=== PATIENT | female | born 1935 | race Caucasian/White ===

== ENCOUNTER 2017-09-06 23:47 | Observation (INO) | payer MEDICARE, OTHER ==
--- NOTE | 2017-09-07 00:03 | ERNOTE ---
Medical Problem HPI - General Chief Complaint: General Assessment Time Seen by Provider: 09/06/17 23:56 Source: patient Exam Limitations: no limitations - Immun/Allergies/Home Medications Immunizations: IMMUNIZATION HX Immunizations Up to Date Yes History of Influenza Vaccine Yes Hx Pneumococcal Vaccination No Allergies/Adverse Reactions: Allergies codeine Adverse Reaction (Mild, Verified 08/22/17 15:24) N/V Sulfa (Sulfonamide Antibiotics) Adverse Reaction (Mild, Verified 08/22/17 15:24) N/V Home Medications: HOME MEDICATIONS Multivitamins [Multivitamin Vivian] 1 cap PO DAILY 08/22/17 [Last Taken Unknown] Sertraline HCl [Zoloft] 50 mg PO DAILY 08/22/17 [Last Taken Unknown] Ciprofloxacin HCl [Cipro] 500 mg PO BID #7 tab 09/07/17 [Last Taken Unknown] oxyCODONE HCL/ACETAMINOPHEN [Percocet 5-325 mg Tablet] 1 each PO QID PRN [Last Taken Unknown] - History of Present History Narrative: Pt states she has not felt well for a few days, with fatigue, ear pressure, shortness of breath and feeling cold Timing: getting worse Severity: moderate Modifying Factors - (Improves): Present: rest Modifying Factors - (Worsens): Present: movement Review of Systems - Review of Systems Constitutional: Present: fever, chills EYE: Present: no symptoms reported ENT: Present: ear pain Respiratory: Present: shortness of breath, cough Cardiology: Absent: chest pain Gastrointestinal/Abdominal: Absent: nausea, vomiting, abdominal pain Genitourinary: Absent: frequency, pain Musculoskeletal: Present: muscle stiffness Skin: Absent: rash, dryness Neurological: Present: no symptoms reported Endocrine: Present: excessive sweating Hematologic/Lymphatic: Present: no symptoms reported Psych: Present: no symptoms reported - Patient's Past Medical History Patient History - Medical: Depression Patient History - Cardiac/Respiratory: COPD Patient History - Cancer: No Hx of Cancer Patient History - Surgical Procedures: No surgical history - Family History Father Family History - Medical: Family History - Cancer: Other - Spinal Cancer Mother Family History - Medical: Family History - Cardiac/Respiratory: Myocardial Infarction - at age 49 - Social History Living Situations: home Psych History: Hx of Depression Smoking Status: Current every day smoker Patient requests Smoking Cessation Consult: No Initiate information on Smoking Cessation: No Alcohol Use: none Drug Use: none - Immunizations Immunizations Up to Date: Yes Hx Pneumococcal Vaccination: No History of Influenza Vaccine: Yes Physical Exam - Physical Exam General Appearance: Present: wd/wn, alert, mild distress Head Exam: Present: normal inspection, no evidence of injury Ears, Nose, Throat: Present: normal ENT inspection Neck: Present: normal inspection, nontender Respiratory: Present: no respiratory distress, no accessory muscle use, decreased breath sounds Cardiovascular/Chest: Present: no murmur, tachycardia Gastrointestinal/Abdominal: Present: normal bowel sounds, nontender, nondistended, soft Extremity Exam: Present: normal inspection, normal range of motion, no edema Neurological Exam: Present: alert, oriented, no motor/sensory deficits Skin Exam: Present: normal color, warm/dry Lymphatic Exam: Present: no adenopathy ED Progress - Results and Orders Patient's Lab Results:: I have reviewed the patient's lab results. Results and Orders: Laboratory Tests 09/07/17 09/07/17 09/07/17 00:00 00:10 00:10 WBC 6.0 Hgb 14.3 Hct 42.3 Plt Count 132 L Sodium 135 Potassium 4.0 Chloride 97 Carbon Dioxide 31.2 Anion Gap 10.8 BUN 14 Creatinine 0.64 Random Glucose 116 H Calcium 8.2 Total Bilirubin 0.4 AST 16 ALT 17 L Alkaline Phosphatase 72 Total Protein 6.9 Albumin 3.4 Urine Color Urine Appearance Urine pH Ur Specific [place] Urine Protein Urine Glucose (UA) Urine Ketones Urine Blood Urine Nitrate Urine Bilirubin Urine Urobilinogen Ur Leukocyte Esterase Urine RBC Urine WBC Ur Epithelial Cells Urine Bacteria Urine Culture Comments Influenza Type A Ag Negative Influenza Type B Ag Negative 09/07/17 01:10 WBC Hgb Hct Plt Count Sodium Potassium Chloride Carbon Dioxide Anion Gap BUN Creatinine Random Glucose Calcium Total Bilirubin AST ALT Alkaline Phosphatase Total Protein Albumin Urine Color Pale yellow Urine Appearance Cloudy Urine pH 7.5 Ur Specific [place] 1.010 Urine Protein Negative Urine Glucose (UA) Negative Urine Ketones 5 Urine Blood 10 H Urine Nitrate Negative Urine Bilirubin Negative Urine Urobilinogen Normal Ur Leukocyte Esterase 25 H Urine RBC 5-10 H Urine WBC 10-25 H Ur Epithelial Cells 5-10 H Urine Bacteria 1+ H Urine Culture Comments Culture to follow Influenza Type A Ag Influenza Type B Ag - Vital Signs Patient's Vital Signs:: I have reviewed the patient's vital signs. Vital Signs: Vital Signs 09/06/17 23:51 Temperature 36.9 C Pulse Rate 100 Respiratory 20 Rate Blood Pressure 180/103 O2 Sat by Pulse 91 Oximetry - EKG EKG: NSR - with 1st degree block, other - left post facicular block EKG read: Interp. by me - X-Ray X-Ray #1 X-Ray: chest Interpretation: Interp. by me X-ray Comments: no infiltrate or effusion - Progress/Reassessment Chief Complaint: General Assessment Progress Note-Subjective: Attempted to wean patient off of O2 in preparation to discharge patient. We were unable to keep SaO2 above 88% without supplimental O2 09/07/17 04:36 spoke with Oneida RIGGS hospitalist, she will come and see the patient before deciding on admission 09/07/17 05:12 Oneida agrees to admit the patient. She asked if I would give the patient a bolus of cardizem for her elevated heart rate. I told her that I did not feel the patient needed cardizem as the patient was not in an arrhythmia but had physiologic sinus tachycardia at 110-120 and I was not going to block the patients physiologic response. 09/07/17 06:49 Departure Clinical Impression: COPD exacerbation UTI (urinary tract infection) Qualifiers: Urinary tract infection type: acute cystitis Hematuria presence: with hematuria Qualified Code(s): N30.01 - Acute cystitis with hematuria - Departure Disposition: [facility] Condition: Good
[2017-09-07 00:16] LABS: Hematocrit 42.3 % (37.0-47.0); Hemoglobin 14.3 gm/dL (12.5-16.0); Mean Cell Volume 88.1 fl (78-100); Mean Corpuscular Hemoglobin 29.8 pg (27-31); Mean Corpuscular Hgb Conc 33.8 g/dl (32-36); Mean Platelet Volume 10.4 fl (6.0-9.5); Neutrophil # 4.3 K/mm3 (1.3-6.0); Neutrophil % 70.8 % (42-75.0); Platelet Count 132 K/mm3 (150-450); Red Cell Distribution Width 13.2 % (11.5-14.0)
[2017-09-07 00:31] LABS: Albumin * 3.4 gm/dl (3.4-5.0); Anion Gap 10.8 mmol/L (6.8-13.8); BUN/Creatinine Ratio 21.9 (9.0-21.6); Bilirubin, Total 0.4 mg/dL (0.0-1.1); Ca. Corrected For Albumin 8.4 mg/dL (8.4-10.2); Calcium * 8.2 mg/dL (7.9-10.9); Carbon Dioxide 31.2 mmol/L (24-32.6); Total Protein 6.9 gm/dL (6.2-8.2)
[2017-09-07 01:29] LABS: Urine Bilirubin Negative (NEGATIVE); Urine Ketone 5 mg/dL (NEGATIVE); Urine Nitrite Negative (NEGATIVE); Urine Protein Negative (NEGATIVE); Urine Urobilinogen Normal (NORMAL); Urine pH 7.5 pH (5.0-7.0)
[2017-09-07 01:41] LABS: Urine Appearance Cloudy; Urine Blood 10 /ul (NEGATIVE); Urine Color Pale Yellow
[2017-09-07 01:42] LABS: Urine Bacteria 1+
[2017-09-07] MEDS ORDERED: CIPROFLOXACIN HCL 250 MG TABLET PO ONE (02:27)
[2017-09-07] MEDS ORDERED: ONDANSETRON 4 MG TAB.RAPDIS PO ONE (02:29)
[2017-09-07] MEDS ORDERED: ONDANSETRON 4 MG TAB.RAPDIS ONE (02:29)
[2017-09-07] MEDS ORDERED: CIPROFLOXACIN HCL 250 MG TABLET ONE (02:29)
[2017-09-07] MEDS ORDERED: ALBUTEROL SULFATE/IPRATROPIUM 3 ML NEBU IH ONE ×2 (02:41→02:42)
[2017-09-07] MEDS ORDERED: METHYLPREDNISOLONE SOD SUCC/PF 125 MG/2 ML VIAL ONE (03:01)
[2017-09-07] MEDS ORDERED: METHYLPREDNISOLONE SOD SUCC/PF 125 MG/2 ML VIAL IV ONE (03:01)
--- NOTE | 2017-09-07 05:41 | HP ---
Chief Complaint - Chief Complaint Date of Service: 09/07/17 Time of Service: 05:23 Chief Complaint: "Fatigue, SOB, weakness, loss of appetite". Source of HPI- Pt ; reliable, ERP provider. History of Present Illness: Mrs. Arroyo is a 81-yr-old WF pt of Dr. Ellen Jordan with a PMH of: AAA, Anxiety, COPD, Depression, HTN, Hypothyroidism & PAD. Pt states that for the last 1 week, she has not been feeling well. She reports symptoms ranging from: feeling fatigued, loss of appetite, SOB & Increasing coughing. She finally chose to come to the ED as she was not getting any better. She denies fevers, but reports having chills. Her cough is mostly non-productive. At the ED, she was found to have POX level of 84% RA and required oxygen supplementation up to 4 L to maintain > 90%. She was tachypneic. ABG's showed acute compensated Respiratory Alcalosis. Her laboratory studies were mostly unremarkable. She still required oxygen supplementation despite treatment with IV Corticosteoids and Nebulizer treatments at the ED. The CXR official report is pending. On physical exam, she gets dyspneic with minimal movement & HR is irregular at 110s -low 130s. She will be admitted under observation status for COPD exacerbation and telemetry monitoring. - Patient's Past Medical History Patient History - Medical: Anxiety, Depression Patient History - Cardiac/Respiratory: COPD, Hypertension, Other - AAA Patient History - Cancer: No Hx of Cancer Patient History - Surgical Procedures: No surgical history - Family History Father Family History - Medical: Family History - Cancer: Other - Spinal Cancer Mother Family History - Medical: Family History - Cardiac/Respiratory: Myocardial Infarction - at age 49 - Social History Living Situations: home Psych History: Hx of Depression Smoking Status: Current every day smoker Patient requests Smoking Cessation Consult: No Initiate information on Smoking Cessation: No Alcohol Use: none Drug Use: none - Immunizations Immunizations Up to Date: Yes Hx Pneumococcal Vaccination: No History of Influenza Vaccine: Yes Review Of Systems (GEN) - Review of Systems Generalized/Overall Review: Present: Weakness, Chills, Malaise, Fatigue, Weight loss. Absent: Fever, Diaphoresis EENTM: Absent: Eye Pain, Blurred Vision, Tearing Respiratory: Present: Cough, Shortness of Breath. Absent: Orthopnea, Stridor Cardiac: Present: Palpitations. Absent: Chest Pain, Edema, Syncope Abdominal: Absent: Nausea, Vomiting, Hematemesis Genitourinary: Absent: Burning, Itching, Frequency Musculoskeletal: Absent: Joint Pain, Back Pain, Joint Swelling Neurological: Present: Weakness. Absent: Headache, Anxiety, Depressed, Numbness Skin: Absent: Dryness, Lesions Endocrine: Present: Intolerance to Cold. Absent: Flushing, Increased Thirst Misc: All systems neg except as marked Allergies/Adverse Reactions: Allergies Allergy/AdvReac Type Severity Reaction Status Date / Time codeine AdvReac Mild N/V Verified 08/22/17 15:24 Sulfa (Sulfonamide AdvReac Mild N/V Verified 08/22/17 15:24 Antibiotics) Home Medications: HOME MEDICATIONS Multivitamins [Multivitamin Vivian] 1 cap PO DAILY 08/22/17 [Last Taken Unknown] Sertraline HCl [Zoloft] 50 mg PO DAILY 08/22/17 [Last Taken Unknown] Ciprofloxacin HCl [Cipro] 500 mg PO BID #7 tab 09/07/17 [Last Taken Unknown] oxyCODONE HCL/ACETAMINOPHEN [Percocet 5-325 mg Tablet] 1 each PO QID PRN [Last Taken Unknown] Exam - Exam Vital Signs: Vital Signs - Last Taken Temp 37.4 C 09/07/17 02:51 Pulse 114 H 09/07/17 05:12 Resp 26 H 09/07/17 05:12 BP 130/78 09/07/17 05:12 Pulse Ox 93 09/07/17 05:12 Constitutional: Present: Alert, Oriented x3, Cooperative, Mild distress, Elderly , Thin and frail ENT Exam: Present: normal ENT inspection, dry mucous membranes. Absent: nasal congestion, nasal drainage Neck: Present: non-tender, full range of motion, supple Back Exam: Present: normal inspection, no CVA tenderness Breasts: Present: Exam deferred Respiratory: Present: lungs clear Cardiovascular/Chest: Present: no edema, irregularly irregular Abdomen: Present: Normal bowel sounds, soft, tender - epigastic area Extremity: Present: normal range of motion, non-tender Skin Exam: Present: warm/dry, no cyanosis Lymphatic: Present: no adenopathy Neurologic: Present: no motor/sensory deficits, alert, oriented x 3 Appearance: Present: appropriate appearance, appropriate insight Eye contact: Present: cooperative, good eye contact, normal speech Thoughts: Present: no apparent hallucination Diagnostic Studies: Laboratory Results WBC 6.0 K/mm3 (4.0-10.5) 09/07/17 00:10 RBC 4.80 M/mm3 (4.2-5.4) 09/07/17 00:10 Hgb 14.3 gm/dL (12.5-16.0) 09/07/17 00:10 Hct 42.3 % (37.0-47.0) 09/07/17 00:10 MCV 88.1 fl (78-100) 09/07/17 00:10 MCH 29.8 pg (27-31) 09/07/17 00:10 MCHC 33.8 g/dl (32-36) 09/07/17 00:10 RDW 13.2 % (11.5-14.0) 09/07/17 00:10 Plt Count 132 K/mm3 (150-450) L 09/07/17 00:10 MPV 10.4 fl (6.0-9.5) H 09/07/17 00:10 Immature Gran % (Auto) 0.20 % (0.001-0.429) 09/07/17 00:10 Immature Gran # (Auto) 0.01 K/mm3 (0.000-0.0310) 09/07/17 00:10 Neutrophils % 70.8 % (42-75.0) 09/07/17 00:10 Lymphocytes % 18.2 % (20-51) L 09/07/17 00:10 Monocytes % 8.3 % (0.0-9) 09/07/17 00:10 Eosinophils % 2.2 % (0.0-3.0) 09/07/17 00:10 Basophils % 0.3 % (0.0-1.0) 09/07/17 00:10 Nucleated RBC % 0.0 k/mm3 (0-1) 09/07/17 00:10 Neutrophils # 4.3 K/mm3 (1.3-6.0) 09/07/17 00:10 Lymphocytes # 1.1 k/mm3 (1.5-3.5) L 09/07/17 00:10 Monocytes # 0.5 k/mm3 (0.0-1.0) 09/07/17 00:10 Eosinophils # 0.1 k/mm3 (0.0-0.7) 09/07/17 00:10 Absolute Basophils 0.0 k/mm3 (0.0-0.1) 09/07/17 00:10 pCO2 24.8 mmHg (32.0-45.0) L 09/07/17 04:10 pO2 53.0 mmHg (83.0-108.0) L 09/07/17 04:10 HCO3 18.9 mmol/L (21.0-28.0) L 09/07/17 04:10 Total CO2 19.6 mmol/L (19.0-24.0) 09/07/17 04:10 Base Excess -2.5 mmol/L (-2.0-3.0) L 09/07/17 04:10 ABG pH 7.50 (7.35-7.45) H 09/07/17 04:10 ABG O2 Sat (Measured) 90.9 % (94.0-98.0) L 09/07/17 04:10 Sodium 135 mmol/L (132-142) 09/07/17 00:10 Plasma Sodium 135 mmol/L (130-142) 09/07/17 00:10 Potassium 4.0 mmol/L (3.4-4.6) 09/07/17 00:10 Chloride 97 mmol/L (97-106) 09/07/17 00:10 Carbon Dioxide 31.2 mmol/L (24-32.6) 09/07/17 00:10 Anion Gap 10.8 mmol/L (6.8-13.8) 09/07/17 00:10 BUN 14 mg/dL (3-23) 09/07/17 00:10 Creatinine 0.64 mg/dL (0.4-1.4) 09/07/17 00:10 Est GFR (Non-Af Amer) 94 mL/min (60-130) D 09/07/17 00:10 BUN/Creatinine Ratio 21.9 (9.0-21.6) H 09/07/17 00:10 Random Glucose 116 mg/dL (70-110) H 09/07/17 00:10 Calcium 8.2 mg/dL (7.9-10.9) 09/07/17 00:10 Calcium Adj for Albumin 8.4 mg/dL (8.4-10.2) 09/07/17 00:10 Total Bilirubin 0.4 mg/dL (0.0-1.1) 09/07/17 00:10 AST 16 U/L (0-48) 09/07/17 00:10 ALT 17 U/L (19-67) L 09/07/17 00:10 Alkaline Phosphatase 72 U/L (50-170) 09/07/17 00:10 Total Protein 6.9 gm/dL (6.2-8.2) 09/07/17 00:10 Albumin 3.4 gm/dl (3.4-5.0) 09/07/17 00:10 Urine Color Pale yellow 09/07/17 01:10 Urine Appearance Cloudy 09/07/17 01:10 Urine pH 7.5 pH (5.0-7.0) 09/07/17 01:10 Ur Specific [place] 1.010 SP.GR. (1.005-1.010) 09/07/17 01:10 Urine Protein Negative mg/dL (NEGATIVE) 09/07/17 01:10 Urine Glucose (UA) Negative mg/dL (NEGATIVE) 09/07/17 01:10 Urine Ketones 5 mg/dL (NEGATIVE) 09/07/17 01:10 Urine Blood 10 /ul (NEGATIVE) H 09/07/17 01:10 Urine Nitrate Negative (NEGATIVE) 09/07/17 01:10 Urine Bilirubin Negative mg/dl (NEGATIVE) 09/07/17 01:10 Urine Urobilinogen Normal EU/dl (NORMAL) 09/07/17 01:10 Ur Leukocyte Esterase 25 /ul (NEGATIVE) H 09/07/17 01:10 Urine RBC 5-10 /hpf (0-5) H 09/07/17 01:10 Urine WBC 10-25 /hpf (0-5) H 09/07/17 01:10 Ur Epithelial Cells 5-10 /hpf (0-5) H 09/07/17 01:10 Urine Bacteria 1+ (NONE) H 09/07/17 01:10 Urine Culture Comments Culture to follow 09/07/17 01:10 Influenza Type A Ag Negative (NEGATIVE) 09/07/17 00:00 Influenza Type B Ag Negative (NEGATIVE) 09/07/17 00:00 Assessment/Plan - Assessment/Plan (1) COPD exacerbation Assessment: Pt is a 81-yr old WF who presented with ongoing SOB, increasing cough & fatigue. The CXR did not show any acute findings and the hematology labs were unremarkable. She required Oxygen supplementation to keep pox > 90%. Given her age, chronic lung disease, comorbidites,current smoker, it is best to cover her with Antibiotics to prevent progression to Pneumonia. Will provide IV steroids and Nebulizer treatments as well. Push cornet q 2 hrs, wean off oxygen as able. May end up needing home O2 qualification if unable to be weaned off. Monitor labs, & V.S & push activity. Problem: Acute (2) HTN (hypertension) Assessment: BPs appears well controlled. Not on any hypertensives. Problem: Chronic Qualifiers: Hypertension type: essential hypertension Qualified Code(s): I10 - Essential (primary) hypertension (3) Anxiety Problem: Chronic (4) AAA (abdominal aortic aneurysm) Assessment: Last US imaging in 01/2013 showe: Proximal abdominal aorta - 2.3 x2.8 cm, Mid Abdominal Aorta 2.1X 2.4cm, Distal 2.5 x 3.1cm Problem: Chronic
[2017-09-07] MEDS ORDERED: guaiFENesin 100 MG/5 ML BTL PO PRN (05:57)
[2017-09-07] MEDS: LEVALBUTEROL HCL 1.25 MG/3 ML AMPUL IH SCH ×4 (07:05→18:01)
[2017-09-07] MEDS ORDERED: AZITHROMYCIN 250 MG TABLET PO ONE (07:22)
[2017-09-07] MEDS: cefTRIAXone SODIUM 1,000 MG in DEXTROSE 5 % IN WATER 50 ML IV SCH ×2 (07:39)
[2017-09-07] MEDS: NICOTINE 14 MG PATC TD SCH (07:43)
--- NOTE | 2017-09-07 08:30 | PN ---
Progess Note - Interim Narrative: 09/07/17 08:28 I saw and examined this patient on 09/07/2017. I agree with the narrative and plan of KEELY Robles. We will continue with her IV antibiotics, IV solumedrol and breathing treatment and O2 supplementation for her Acute COPD exacerbation.
[2017-09-07] MEDS: METHYLPREDNISOLONE SOD SUCC 80 MG in WATER FOR INJ.,BACTERIOSTATIC 0 ML IV SCH ×3 (08:49→20:05)
[2017-09-07] MEDS ORDERED: oxyCODONE HCL/ACETAMINOPHEN 1 TAB TABLET PO PRN (19:50)
[2017-09-08] MEDS: LEVALBUTEROL HCL 1.25 MG/3 ML AMPUL IH SCH ×2 (00:27→06:04)
[2017-09-08] MEDS: METHYLPREDNISOLONE SOD SUCC 80 MG in WATER FOR INJ.,BACTERIOSTATIC 0 ML IV SCH ×2 (02:07→08:51)
[2017-09-08] MEDS: cefTRIAXone SODIUM 1,000 MG in DEXTROSE 5 % IN WATER 50 ML IV SCH ×4 (07:15→08:03)
[2017-09-08] MEDS: NICOTINE 14 MG PATC TD SCH (07:22)
--- NOTE | 2017-09-08 08:10 | DS ---
(1) COPD exacerbation Diagnosis(s): likely acute bronchitis. Problem: Resolved (2) UTI (urinary tract infection) Diagnosis(s): UCS - NG Problem: Acute Qualifiers: Urinary tract infection type: acute cystitis Hematuria presence: with hematuria Qualified Code(s): N30.01 - Acute cystitis with hematuria (3) AAA (abdominal aortic aneurysm) Problem: Chronic (4) Anxiety Diagnosis(s): with depression -continue with sertraline Problem: Chronic (5) HTN (hypertension) Diagnosis(s): diet controlled Problem: Chronic Qualifiers: Hypertension type: essential hypertension Qualified Code(s): I10 - Essential (primary) hypertension (6) Smoking 1/2 pack a day or less Diagnosis(s): will discharge on nicotine patch Problem: Acute Description of Stay: Annette Arroyo is a 81-yr-old WF with a PMH of: AAA, Anxiety, COPD, Depression, HTN, Hypothyroidism & PAD who was admitted on 07/08/2018. Pt stated that for the last 1 week, she had not been feeling well. She reported symptoms ranging from:feeling fatigued, loss of appetite, SOB & Increasing coughing. She finally chose to come to the ED as she was not getting any better. She denied fevers, but reported having chills. Her cough is mostly non-productive. At the ED, she was found to have POX level of 84% RA and required oxygen supplementation up to 4 L to maintain > 90%. She was tachypneic. ABG's showed acute compensated Respiratory Alkalosis. Her laboratory studies were mostly unremarkable. She still required oxygen supplementation despite treatment with IV Corticosteoids and Nebulizer treatments at the ED. The CXR did not show any acute cardiopulmonary findings. Her influenza tests were negative. She was dyspneic with minimal exertion. She was admitted under observation status for COPD exacerbation and telemetry monitoring. She was started on IV antibiotics, IV solumedrol, and breathing treatments. She is feeling much better today. She is stable to be discharge today pending O2 weaning. ADDENDUM: Her O2 sat at RA is 93-95%. ADDENDUM: Her O2 sat went down to 74 % with walking. Will send her home with O2 2-3 L per NC. Procedures Performed: none Discharge Disposition: Home self care Disposition: Home self-care Condition: Good Discharge Activity: Activity as tolerated Discharge Diet: General/regular food Referrals: Libarnes,Roseller, MD [Primary Care Provider] - Problem Oriented Discharge Instructions to Patient/Family: Chronic Obstructive Pulmonary Disease Exacerbation, [id number], Oxygen Use at Home Additional Patient Instructions (free text): Follow up with PCP for TCM appointment in [address] Jordan on 09-14-17 at 9:00am. Oxygen at 3 Liters Prescriptions (Any new or edited meds): Albuterol Sulfate [Proair Hfa] 1 - 2 puff IH Q4H PRN #1 inhaler PRN Reason: Shortness Of Breath Albuterol Sulfate/Ipratropium [Duoneb 2.5-0.5MG/3ML Soln] 3 ml IH QID #150 vial guaiFENesin [Robitussin] 200 mg PO Q4H PRN #1 btl PRN Reason: Secretions Levofloxacin [Levaquin] 500 mg PO DAILY #7 tablet Nicotine [Nicoderm] 14 mg TD Q24H #14 patch.td24 predniSONE [Prednisone] 40 mg PO DAILY 5 Days #20 tab Complete Home Medications List: Complete Home Medication List: Multivitamins [Multivitamin Ivvian] 1 cap PO DAILY 08/22/17 Sertraline HCl [Zoloft] 50 mg PO DAILY 08/22/17 oxyCODONE HCL/ACETAMINOPHEN [Percocet 5-325 mg Tablet] 1 each PO QID PRN Albuterol Sulfate [Proair Hfa] 1 - 2 puff IH Q4H PRN #1 inhaler 09/08/17 Albuterol Sulfate/Ipratropium [Duoneb 2.5-0.5MG/3ML Soln] 3 ml IH QID #150 vial 09/08/17 Levofloxacin [Levaquin] 500 mg PO DAILY #7 tablet 09/08/17 Nicotine [Nicoderm] 14 mg TD Q24H #14 patch.td24 09/08/17 guaiFENesin [Robitussin] 200 mg PO Q4H PRN #1 btl 09/08/17 predniSONE [Prednisone] 40 mg PO DAILY 5 Days #20 tab 09/08/17
[2017-09-08] MEDS ORDERED: SERTRALINE HCL 50 MG TABLET PO SCH (09:00)
[2017-09-08] MEDS ORDERED: AZITHROMYCIN 250 MG TABLET PO SCH (09:00)
[2017-09-08] MEDS ORDERED: MULTIVITAMINS 1 CAP CAPSULE PO SCH (09:00)
[2017-09-08 10:42] VITALS: BP 108/52
== END 2017-09-08 14:30 | disposition home or self-care (01) ==
LOC: ER 23:47 → MS 09-07 05:19
PROVIDERS: ADMIT Nurse Practitioner; ATTEND Internal Medicine
PROC: 4A033R1 Measurement of Arterial Saturation, Peripheral, Percutaneous Approach (ICD-10-PCS; principal; 2017-09-06)
DX: F17.200 Nicotine dependence, unspecified, uncomplicated; J44.1 Chronic obstructive pulmonary disease with (acute) exacerbation; I71.4 Abdominal aortic aneurysm, without rupture; Z68.1 Body mass index [BMI] 19.9 or less, adult; F41.8 Other specified anxiety disorders; N30.01 Acute cystitis with hematuria; I10 Essential (primary) hypertension
CPT/HCPCS: 36415; 36600; 71046; 80053; 81001; 82803; 85025; 87040; 87086; 87400; 93005; 94640; 94760; 96374; 96375; 96376; 99285; G0378